=== PATIENT | male | born 1955 | race Caucasian/White ===

== ENCOUNTER → 2016-07-04 | Outpatient (CLI) | payer BC ==
[2016-07-04 16:46] LABS: BASOPHIL # 0.1 K/uL (0.0-0.2); BASOPHIL % 0.7 %; EOSINOPHIL # 0.3 K/uL (0.0-0.5); EOSINOPHIL % 3.9 %; HEMATOCRIT 47.6 % (37.0-53.0); HEMOGLOBIN 15.9 g/dL (11.0-16.0); IMMATURE GRANULOCYTE % 0.4 %; LYMPHOCYTE # 1.2 K/uL (0.8-4.0); LYMPHOCYTE % 13.9 %; MCH 28.1 pg (27.0-34.0); MCHC 33.4 gm/dL (32.0-36.5); MCV 84.2 fl (83.0-98.0); MONOCYTE # 0.6 K/uL (0.0-1.0); MPV 10.3 fl (9.4-12.4); NEUTROPHIL # (ANC) 6.1 K/uL (1.4-9.0); NEUTROPHIL % 74.1 %; NRBC % 0 /100WBC (0-0.00); PLATELET COUNT 169 K/uL (150-450); RBC 5.65 M/uL (3.50-5.50); RDW-CV 13.7 % (11.9-14.6); WBC 8.3 K/uL (4.0-11.0)
[2016-07-04 17:01] LABS: ALBUMIN 4.4 gm/dL (3.5-5.0); ALK PHOS 114 IU/L (33-138); ALT 32 IU/L (12-78); ANION GAP 11.4 (10.0-19.0); AST 22 IU/L (10-40); BLOOD UREA NITROGEN 18 mg/dL (6-24); CALCIUM 8.8 mg/dL (8.5-10.5); CHLORIDE 104 mMol/L (96-110); CO2 29 mMol/L (22-32); CPK 85 IU/L (35-332); CREATININE 0.9 mg/dL (0.6-1.3); ESTIMATED GFR (MDRD EQUATION) > 60; POTASSIUM 4.4 mMol/L (3.7-5.1); SODIUM 140 mMol/L (135-145); TOTAL BILIRUBIN 0.7 mg/dL (0.0-1.5); TOTAL PROTEIN 7.8 g/dL (6.0-8.4)
== END | disposition disaster alternative care site (69) ==
LOC: LNHI 16:41
PROVIDERS: Internal Medicine Cardiovascular Disease
DX: M79.621 Pain in right upper arm (principal); I10 Essential (primary) hypertension; E78.2 Mixed hyperlipidemia; Z95.2 Presence of prosthetic heart valve

== ENCOUNTER 2016-09-02 06:40 | Emergency (ER) | payer BC ==
--- NOTE | ~2016-09-02 | ER ---
PATIENT'S NAME: CATHY RUSSELL [facility] AGE: 60 Y [address] ROOM: [place] [address] LOCATION: ED ADMIT DATE: 09/02/2016 ER/Outpatient Report DISCHARGE DATE: 09/02/2016 FAMILY PHYSICIAN: PHYSICIAN, NO ATTENDING PHYSICIAN: John Courtney CHIEF COMPLAINT: Nosebleed. HISTORY OF PRESENT ILLNESS: The patient states that early this morning, he began to have some nose bleeding. Pressure has not been able to fix it. He is on warfarin for aortic valve. He has never had anything like this before. He has just been holding pressure to it. He is scheduled for an INR check this week. He denies any other concerns at this time. He denies any difficulty with his breathing. He denies any lightheadedness. PAST MEDICAL HISTORY: Documented on the record and reviewed by me. SOCIAL HISTORY: Documented on the record and reviewed by me. MEDICATIONS: Documented on the record and reviewed by me. ALLERGIES: DOCUMENTED ON THE RECORD AND REVIEWED BY ME. REVIEW OF SYSTEMS: All systems were reviewed and negative except as noted in the HPI. PHYSICAL EXAMINATION: VITAL SIGNS: Blood pressure 188/106, pulse is 77, respiratory rate is 18, temperature 97.0, and SpO2 is 98% on room air. GENERAL: Age-appropriate male, in no obvious pain or distress, sitting in the exam chair with his fingers on the nasal bridge and a lot of Kleenex is held under the nostrils. NEUROLOGIC: The patient is awake and alert. GCS is 15. No obvious abnormalities. HEENT: Normocephalic and atraumatic. Eyes are PERRL. The oropharynx is clear with scant blood in the posterior oropharynx. The nasal exam is notable for some excoriation over the anterior inferior aspect of the right nasal septum with some bleeding. Clot was evacuated. No evidence of posterior bleeding. The left naris is grossly unremarkable. PATIENT'S NAME: CATHY RUSSELL [facility] AGE: 60 Y [address] ROOM: [place] [address] LOCATION: [facility] ADMIT DATE: 09/02/2016 ER/Outpatient Report DISCHARGE DATE: 09/02/2016 FAMILY PHYSICIAN: PHYSICIAN, NO ATTENDING PHYSICIAN: John Courtney NECK: Supple. Trachea is midline. CHEST: Heart is in regular rate and rhythm. LUNGS: Clear to auscultation bilateral. ABDOMEN: Benign. EXTREMITIES: Normal to inspection. SKIN: Warm, dry, and intact. LABORATORY DATA AND X-RAYS: CBC was obtained with no obvious anemia. No other abnormalities. INR is 3.01. EMERGENCY DEPARTMENT COURSE: The patient was seen and evaluated as above. Afrin and pressure were placed with inadequate control of bleeding. I then used a light nasal speculum to further evaluate the nasal septum. There are multiple areas of excoriation with scant active bleeding at the anterior aspect inferior to Kiesselbach's plexus. They are the source of the bleeding. I was able to place cautery to the area and had the patient hold pressure and this again do not result in appropriate hemostasis after 20 minutes. The patient was doing a poor job holding pressure, but despite my direct application of pressure, the bleeding did persist. At that time, I elected to perform nasal packing with a rhino rocket. This was placed and pressure was held with brief hemostasis. It did not adequately stop the bleeding, as he had bleeding around it after another 10 minutes of pressure. I contacted Yessy Campuzano, on-call PA for Dr. Isaac, ENT. They will see the patient in clinic now for further evaluation and treatment. The patient was discharged after placing pressure dressing on the nose with a Rhino Rocket in place to achieve hemostasis. There is no reason that he should not be able to drive over to the clinic for further evaluation. All questions were answered. The patient was discharged in good condition. MD ANABEL BRIGHT/jaclyn /[id number] d: 09/03/16 1416 t: 09/13/16 1733, OUTPATIENT REPORT
[2016-09-02 07:41] LABS: BASOPHIL # 0.1 K/uL (0.0-0.2); BASOPHIL % 0.7 %; EOSINOPHIL # 0.3 K/uL (0.0-0.5); EOSINOPHIL % 3.5 %; HEMATOCRIT 46.7 % (37.0-53.0); HEMOGLOBIN 15.9 g/dL (11.0-16.0); IMMATURE GRANULOCYTE % 0.3 %; LYMPHOCYTE # 1.1 K/uL (0.8-4.0); LYMPHOCYTE % 14.4 %; MCH 27.9 pg (27.0-34.0); MCV 82.1 fl (83.0-98.0); MONOCYTE # 0.6 K/uL (0.0-1.0); MONOCYTE % 7.5 %; MPV 9.8 fl (9.4-12.4); NEUTROPHIL # (ANC) 5.6 K/uL (1.4-9.0); NEUTROPHIL % 73.6 %; NRBC % 0 /100WBC (0-0.00); PLATELET COUNT 168 K/uL (150-450); RBC 5.69 M/uL (3.50-5.50); RDW-CV 13.2 % (11.9-14.6); WBC 7.6 K/uL (4.0-11.0)
[2016-09-02 07:48] LABS: INR - (THERAPEUTIC) 3.01 (0.92-1.07)
== END 2016-09-02 08:41 | disposition disaster alternative care site (69) ==
LOC: GMED 06:40
PROVIDERS: Emergency Medicine
PROC: 0W3Q7ZZ Control Bleeding in Respiratory Tract, Via Natural or Artificial Opening (ICD-10-PCS; principal; 2016-09-02)
DX: R04.0 Epistaxis (principal); I10 Essential (primary) hypertension; Z88.8 Allergy status to other drugs, medicaments and biological substances; Z79.01 Long term (current) use of anticoagulants; Z79.899 Other long term (current) drug therapy
CPT/HCPCS: A9270